=== PATIENT | female | born 1990 | race Two or more races ===

== ENCOUNTER 2024-11-16 11:14 | Inpatient (IN) | payer OTHER ==
[2024-11-16] MEDS ORDERED: NA CHLORIDE 0.9% 1,000 ML ONE ×3 (12:01→15:45)
[2024-11-16] MEDS ORDERED: ONDANSETRON 4 MG/2 ML VIAL ONE (12:10)
[2024-11-16] MEDS ORDERED: MORPHINE 4 MG/ML SYR ONE (12:10)
[2024-11-16 12:25] LABS: Specific Gravity > 1.030 (1.005-1.030); Sqamous Epithelial <5 /HPF (None Seen); Transitional Epithelial <5 /HPF (None Seen); Urine Bacteria <20 /HPF (<20); Urine Bilirubin NEGATIVE (Negative); Urine Blood 3+ (OVER) (Negative); Urine Clarity Extremely Turbid (Clear); Urine Color Yellow (Yellow); Urine Culture Reflex Order NOT NEEDED; Urine Glucose NEGATIVE (Negative); Urine Ketones NEGATIVE (Negative); Urine Microscopic Reflex YN ORDER UMIC; Urine Mucus 4+ /HPF (None Seen); Urine Nitrite NEGATIVE (Negative); Urine Protein 2+ (Negative); Urine RBC >50 /HPF (None Seen); Urine Urobilinogen 1+ (Normal); Urine WBC <5 /HPF (<5); Urine pH 6.5 (5.0-7.0)
[2024-11-16 12:32] LABS: Specific Gravity > 1.030 (1.005-1.030)
[2024-11-16 12:38] LABS: Absolute Basophils 0.1 K/uL (0-0.5); Absolute Lymphocytes (CBC) 1.6 K/uL (0.7-4.9); Absolute Monocytes 1.3 K/uL (0.1-1.3); Absolute Neutrophil 19.8 K/uL (1.8-8.0); Basophils % 0.3 % (0-1.3); Hematocrit 40.6 % (36.0-45.0); Hemoglobin 13.2 g/dL (12.0-15.0); Lymphocytes % 7.1 % (15.3-44.8); MCH 27.7 pg (27.0-35.0); MCHC 32.6 g/dL (32.0-36.0); Monocytes % 5.6 % (3.3-12.3); Platelets 230 thou/uL (152-406); RBC Red Blood Cell Count 4.78 M/uL (3.86-4.86); Red Cell Distribution Width 13.3 % (12.1-15.2)
[2024-11-16 12:56] LABS: Albumin 3.7 g/dL (3.4-5.0); Albumin/Globulin Ratio 0.8 (1.1-1.8); Anion Gap 7.4 mEq/L (5.0-15.0); Bilirubin Total 0.8 mg/dL (0.2-1.0); Globulin 4.4 g/dL (2.3-3.5); Potassium 3.4 mEq/L (3.5-5.1); Protein, Total 8.1 g/dL (6.4-8.2)
[2024-11-16 13:08] LABS: Blood Morphology Comment NOT SEEN (NOT SEEN); Platelet Estimate ADEQ; White Blood Cell Scan OK (OK)
[2024-11-16 13:17] LABS: SARS-CoV-2 Antigen CONTROL BLUE LINE VIS/BG OK; SARS-CoV-2 Antigen Rapid Res Negative (Negative)
--- NOTE | 2024-11-16 13:40 | RAD REPORT ---
EXAMINATION: CT ABDOMEN AND PELVIS WITHOUT CONTRAST CLINICAL INDICATION: Abdominal pain TECHNIQUE: CT abdomen and pelvis was performed, as per department protocol. IV contrast and oral was not administered.Axial, sagittal and coronal reconstructions were obtained. One or more of the following dose reduction techniques were used: Automated exposure control, adjustment of the mA and/o r kV according to the patient size, and/or iterative reconstruction. Unless otherwise specified, incidental findings do not require dedicated imaging follow-up. [id number]. COMPARISON: No prior exam. FINDINGS: The lack of intravenous and oral contrast limits evaluation of solid organs, vessels and bowel. 5.7 cm consolidation left lower lobe. The liver is mildly enlarged. Cholelithiasis. Mild gallbladder distention. Gallbladder wall does not appear thickened. Spleen, pancreas, right adrenal appear grossly normal 2.1 cm left adrenal mass. Hounsfield unit of -3. Compatible with a lipid rich benign adenoma. No foll ow-up recommended. Small nonobstructing left renal calculi.. No hydronephrosis No evidence of diverticulitis Normal appendix. 2.1 cm right ovarian cyst. No follow-up recommended. No significant free fluid. IMPRESSION: Left lower lobe consolidation could represent pneumonia or mass. Cholelithiasis with mild gallbladder distention Mild hepatomegaly Nonobstructing left renal calculi
--- NOTE | 2024-11-16 13:40 | RAD REPORT ---
EXAM: Chest Abdomen Pelvis W Cont CLINICAL INDICATION: Chest and abdominal pain TECHNIQUE: CT chest, abdomen and pelvis was performed, with 100 cc Isovue-300 IV contrast, as per de partment protocol. Axial, sagittal and coronal reconstructions were obtained. One or more of the following dose reduction techniques were used: Automated exposure control, adjustment of the mA and/o r kV according to the patient size, and/or iterative reconstruction. Unless otherwise specified, incidental findings do not require dedicated imaging follow-up. [id number]. Oral contrast not given. This limits evaluation of the bowel. COMPARISON: None FINDINGS: 6 cm left lower lobe opacity. No mediastinal or hilar lymphadenopathy. No pleural effusion.. No pericardial effusion Mild hepatomegaly. Cholelithiasis. Gallbladder mildly distended. Gallbladder wall does not appear thi ckened. The spleen, pancreas, right adrenal and right kidney unremarkable 1.6 cm adenoma left adrenal gland. Small nonobstructing left renal calculi. Normal appendix. 2.1 cm right ovarian cyst. No follow-up imaging recommended. No significant free fluid. There is no evidence of diverticulitis Mild prominence of the cervical canal. IMPRESSION: 6 cm left lower lobe opacity may represent a mass or pneumonia. Cholelithiasis. Mild gallbladder distention Small nonobstructing left renal calculi Mild prominence of the cervical canal is nonspecific. Follow-up ultrasound in couple months recommend ed for reevaluation
--- NOTE | 2024-11-16 13:56 | ER ---
Nurse's Notes [facility] Name: Esme Berger Age: 33 yrs Sex: Female : 1990 Arrival Date: 11/16/2024 Time: 11:14 Bed 20 Private MD: Diagnosis: Pneumonia sepsis Presentation: 11/16 11:35 Chief complaint: Patient states: LEFT FLANK WITH N/V STARTED LAST NIGHT. DENIES db DIARRHEA. Coronavirus screen: Client denies travel out of the [place] in the last 14 days. At this time, the client does not indicate any symptoms associated with coronavirus-19. Ebola Screen: Patient negative for fever greater than or equal to 101.5 degrees Fahrenheit, and additional compatible Ebola Virus Disease symptoms Patient denies exposure to infectious person. Patient denies travel to an Ebola-affected area in the 21 days before illness onset. No symptoms or risks identified at this time. Initial Sepsis Screen: Does the patient meet any 2 criteria? No. Patient's initial sepsis screen is negative. Does the patient have a suspected source of infection? No. Patient's initial sepsis screen is negative. Risk Assessment: Do you want to hurt yourself or someone else? Patient reports no desire to harm self or others. Onset of symptoms was November 15, 2024. 11:35 Method Of Arrival: Wheelchair db 11:35 Acuity: MONICA 3 db Triage Assessment: 11:35 General: Appears in no apparent distress. uncomfortable, Behavior is calm, cooperative. db Pain: Complains of pain in left upper quadrant and left lower quadrant. Neuro: Level of Consciousness is awake, alert, obeys commands, Oriented to person, place, time, situation, Speech is normal. Cardiovascular: No deficits noted. Respiratory: Airway is patent Respiratory effort is even, unlabored, Respiratory pattern is regular, symmetrical. GI: Abdomen is flat, non-distended, Reports upper abdominal pain, nausea, vomiting. : No deficits noted. No signs and/or symptoms were reported regarding the genitourinary system. Historical: - Allergies: 11:35 No Known Allergies; db - Home Meds: 11:35 None [Active]; db - PSHx: 11:35 section; db - Immunization history:: Adult Immunizations unknown. - Infectious Disease History:: Denies. - Social history:: Smoking status: Patient reports the use of cigarette tobacco products, smokes one pack cigarettes per day. Patient/guardian denies using alcohol. Screenin:53 [facility] ED Fall Risk Assessment (Adult) History of falling in the last 3 months, bp including since admission No falls in past 3 months (0 pts) Confusion or Disorientation No (0 pts) Intoxicated or Sedated No (0 pts) Impaired Gait No (0 pts) Mobility Assist Device Used No (0 pt) Altered Elimination No (0 pt) Score/Fall Risk Level 0 - 2 = Low Risk Oriented to surroundings. Abuse screen: Denies threats or abuse. Denies injuries from another. Nutritional screening: No deficits noted. Tuberculosis screening: No symptoms or risk factors identified. Assessment: 11:45 General: Appears uncomfortable, ill, Behavior is calm, cooperative, appropriate for age.bp 15:54 Reassessment: REPORT FAXED TO RM 213. bp Vital Signs: 11:35 BP 122 / 79; Pulse 119; Resp 18; Temp 100(O); Pulse Ox 95% on R/A; Weight 58.06 kg; db Height 5 ft. 4 in. ; 15:54 BP 108 / 72; Pulse 143; Resp 20; Temp 100.1; Pulse Ox 97% ; bp 11:35 Body Mass Index 21.97 (58.06 kg, 162.56 cm) db ED Course: 11:16 Patient arrived in ED. ra3 11:22 Christos Toussaint MD is Attending Physician. ec2 11:27 Attending Physician role handed off by Christos Toussaint MD sp3 11:27 Sharif Covarrubias MD is Attending Physician. sp3 11:35 Arm band placed on Patient placed in an exam room. db 11:41 Triage completed. db 11:41 Domenico Roy, RN is Primary Nurse. bp 12:22 Flu Sent. nh2 12:22 SARS RAPID Sent. nh2 13:08 CT Abd/Pelvis - Without Contrast In Process Unspecified. EDMS 13:16 Chest Abdomen Pelvis W Cont In Process Unspecified. EDMS 13:55 Stella Hayward is Hospitalizing Provider. sp3 15:53 No provider procedures requiring assistance completed. Patient admitted, IV remains in bp place. 15:54 Patient has correct armband on for positive identification. Provided Education on: N/A. bp Administered Medications: 12:28 Drug: morphine IVP or IV 4 mg IVP once over 4 mins Route: IVP; Infused Over: 4 mins; bp Site: right antecubital; 15:53 Follow up: Response: No adverse reaction bp 12:28 Drug: Ondansetron IVP 4 mg IVP once; over 2 minutes Route: IVP; Site: right antecubital;bp 15:53 Follow up: Response: No adverse reaction bp 12:29 Drug: NS 0.9% IV 1000 ml IV at 1 bolus Per protocol; to be given as a bolus over 60 bp minutes Route: IV; Rate: 1 bolus; Site: right antecubital; 15:51 Follow up: IV Status: Completed infusion bp 14:00 Drug: Rocephin - Rocephin (cefTRIAXone) IVPB 1 grams IVPB once over 30 mins; (mix in 50 bp mL NS) Route: IVPB; Infused Over: 30 mins; Site: right antecubital; 15:52 Follow up: IV Status: Completed infusion bp 14:00 Drug: Zithromax IVPB 500 mg IVPB once over 1 hrs; mix in 250 mL NS Route: IVPB; Infused bp Over: 1 hrs; Site: right antecubital; 15:52 Follow up: IV Status: Completed infusion bp 14:00 Drug: NS 0.9% IV 1000 ml IV at 1000 ml once; to be given as a bolus over 60 minutes bp Route: IV; Rate: 1000 ml; Site: right antecubital; 15:52 Follow up: IV Status: Completed infusion bp 15:30 Drug: Ibuprofen PO 600 mg PO once Route: PO; bp 15:52 Follow up: Response: No adverse reaction bp 15:30 Drug: Acetaminophen PO 1000 mg PO once Route: PO; bp 15:52 Follow up: Response: No adverse reaction bp 15:30 Drug: NS 0.9% IV 1000 ml IV at 150 ml/hr once Route: IV; Rate: 150 ml/hr; Site: right bp antecubital; 15:52 Follow up: IV Status: Infusion continued upon admission bp Medication: 15:54 VIS not applicable for this client. bp Outcome: 13:55 Decision to Hospitalize by Provider. sp3 15:54 Admitted to Med/surg room 213, bp 15:54 Condition: stable 15:54 Instructed on the need for admit, 16:42 Patient left the ED. [email or web address] Signatures: Dispatcher [employer] Domenico Tay RN RN bp Sharif Covarrubias MD MD sp3 Gale Badillo RN RN ko1 Tamiko Parra RN RN db Corral, Edwin, MD MD ec2 Suzie Awan 3 Matias Saleh, Jace nh2
--- NOTE | 2024-11-16 13:56 | EDPHYS ---
Physician Documentation [facility] Name: Esme Berger Age: 33 yrs Sex: Female : 1990 Arrival Date: 11/16/2024 Time: 11:14 Bed 20 Private MD: ED Physician Sharif Covarrubias HPI: 11/16 12:22 This 33 yrs old [place] Female presents to ER via Wheelchair with complaints of Flank sp3 Pain - Left. 12:22 33-year-old female with history of kidney stone in the past now presents with left sp3 flank pain for 48 hours now getting worse. She denies any dysuria or gross visualized hematuria. She denies any headache, chest pain, shortness of breath, intra-abdominal pain, vomiting, diarrhea or any other concerning signs or symptoms. She denies objectively having a fever but does feel warm.. Historical: - Allergies: 11:35 No Known Allergies; db - Home Meds: 11:35 None [Active]; db - PSHx: 11:35 section; db - Immunization history:: Adult Immunizations unknown. - Infectious Disease History:: Denies. - Social history:: Smoking status: Patient reports the use of cigarette tobacco products, smokes one pack cigarettes per day. Patient/guardian denies using alcohol. ROS: 12:27 Constitutional: Negative for fever, chills, and weight loss, Eyes: Negative for injury, sp3 pain, redness, and discharge, ENT: Negative for injury, pain, and discharge, Neck: Negative for injury, pain, and swelling, Cardiovascular: Negative for chest pain, palpitations, and edema, Respiratory: Negative for shortness of breath, cough, wheezing, and pleuritic chest pain, Back: Negative for injury and pain, MS/Extremity: Negative for injury and deformity, Skin: Negative for injury, rash, and discoloration, Neuro: Negative for headache, weakness, numbness, tingling, and seizure, Psych: Negative for depression, anxiety, suicide ideation, homicidal ideation, and hallucinations, Allergy/Immunology: Negative for hives, rash, and allergies, Endocrine: Negative for neck swelling, polydipsia, polyuria, polyphagia, and marked weight changes, 12:27 All other systems are negative, Exam: 12:27 Constitutional: This is a well developed, well nourished patient who is awake, alert, sp3 and in no acute distress. Head/Face: Normocephalic, atraumatic. Eyes: Pupils equal round and reactive to light, extra-ocular motions intact. Lids and lashes normal. Conjunctiva and sclera are non-icteric and not injected. Cornea within normal limits. Periorbital areas with no swelling, redness, or edema. Neck: Trachea midline, no thyromegaly or masses palpated, and no cervical lymphadenopathy. Supple, full range of motion without nuchal rigidity, or vertebral point tenderness. No Meningismus. Chest/axilla: Normal chest wall appearance and motion. Nontender with no deformity. No lesions are appreciated. Cardiovascular: Regular rate and rhythm with a normal S1 and S2. No gallops, murmurs, or rubs. Normal PMI, no JVD. No pulse deficits. Respiratory: Lungs have equal breath sounds bilaterally, clear to auscultation and percussion. No rales, rhonchi or wheezes noted. No increased work of breathing, no retractions or nasal flaring. Skin: Warm, dry with normal turgor. Normal color with no rashes, no lesions, and no evidence of cellulitis. MS/ Extremity: Pulses equal, no cyanosis. Neurovascular intact. Full, normal range of motion. Neuro: Awake and alert, GCS 15, oriented to person, place, time, and situation. Cranial nerves II-XII grossly intact. Motor strength 5/5 in all extremities. Sensory grossly intact. Cerebellar exam normal. Normal gait. Psych: Awake, alert, with orientation to person, place and time. Behavior, mood, and affect are within normal limits. 12:27 Back: Left CVA tenderness noted. Mild anterior abdominal pain to palpation left side., Vital Signs: 11:35 BP 122 / 79; Pulse 119; Resp 18; Temp 100(O); Pulse Ox 95% on R/A; Weight 58.06 kg; db Height 5 ft. 4 in. ; 15:54 BP 108 / 72; Pulse 143; Resp 20; Temp 100.1; Pulse Ox 97% ; bp 11:35 Body Mass Index 21.97 (58.06 kg, 162.56 cm) db MDM: 11:33 Medical Screening Exam initiated sp3 12:28 Data reviewed: vital signs, nurses notes, lab test result(s), EKG, radiologic studies. sp3 ED course: 33-year-old female with left flank pain. Patient is tachycardic and febrile to 100.0. Differential diagnosis includes UTI/pyelonephritis spectrum, ureterolithiasis/kidney stone spectrum, other intra-abdominal pathology, viral illness, among others. Workup will include UA, routine labs, CT scan of the abdomen pelvis noncontrast kidney stone protocol with final disposition pending workup and patient course. Normal saline for tachycardia and ondansetron and morphine for pain and nausea control also given. Disposition pending workup and patient course.. 13:51 ED course: Patient with sick centimeter pneumonia left lower lobe found on CT. No sp3 ureteral stones noted. 22,000 white count patient still tachycardic. Second liter normal saline ordered along with Rocephin and Zithromax IV. Lactate 1.7.. 11/16 11:55 Order name: CBC with Diff; Complete Time: 13:23 sp3 11/16 11:55 Order name: CMP; Complete Time: 13:23 sp3 11/16 11:55 Order name: Lipase; Complete Time: 13:23 sp3 11/16 11:55 Order name: Test, Urine; Complete Time: 13:23 sp3 11/16 11:55 Order name: Urinalysis w/ reflexes; Complete Time: 13:23 sp3 11/16 11:56 Order name: Lactate w/ 2H reflex if indic.; Complete Time: 13:23 sp3 11/16 11:56 Order name: Flu; Complete Time: 13:23 sp3 11/16 11:56 Order name: SARS RAPID; Complete Time: 13:23 sp3 11/16 11:56 Order name: Blood Culture Adult (2) sp3 11/16 12:41 Order name: CBC Smear Scan; Complete Time: 13:23 EDMS 11/16 15:10 Order name: RSV snw 11/16 15:19 Order name: Thyroid Stimulating Hormone EDMS 11/16 15:19 Order name: CBC with Automated Diff EDMS 11/16 15:19 Order name: CBC with Automated Diff EDMS 11/16 15:19 Order name: CBC with Automated Diff EDMS 11/16 15:19 Order name: CBC with Automated Diff EDMS 11/16 15:19 Order name: Comprehensive Metabolic Panel EDMS 11/16 15:19 Order name: Comprehensive Metabolic Panel EDMS 11/16 15:19 Order name: Comprehensive Metabolic Panel EDMS 11/16 15:19 Order name: Comprehensive Metabolic Panel EDMS 11/16 15:19 Order name: Lipid Profile EDMS 11/16 15:19 Order name: Lipid Profile EDMS 11/16 15:19 Order name: Magnesium EDMS 11/16 15:19 Order name: Magnesium EDMS 11/16 15:19 Order name: Magnesium EDMS 11/16 15:19 Order name: Magnesium EDMS 11/16 15:19 Order name: Phosphorus EDMS 11/16 15:19 Order name: Phosphorus EDMS 11/16 15:19 Order name: Phosphorus EDMS 11/16 15:19 Order name: Phosphorus EDMS 11/16 11:55 Order name: CT Abd/Pelvis - Without Contrast; Complete Time: 13:42 sp3 11/16 13:09 Order name: Chest Abdomen Pelvis W Cont; Complete Time: 13:42 EDMS 11/16 11:55 Order name: IV Saline Lock; Complete Time: 12:29 sp3 11/16 11:55 Order name: Labs collected and sent; Complete Time: 12:29 sp3 Administered Medications: 12:28 Drug: morphine IVP or IV 4 mg IVP once over 4 mins Route: IVP; Infused Over: 4 mins; bp Site: right antecubital; 15:53 Follow up: Response: No adverse reaction bp 12:28 Drug: Ondansetron IVP 4 mg IVP once; over 2 minutes Route: IVP; Site: right antecubital;bp 15:53 Follow up: Response: No adverse reaction bp 12:29 Drug: NS 0.9% IV 1000 ml IV at 1 bolus Per protocol; to be given as a bolus over 60 bp minutes Route: IV; Rate: 1 bolus; Site: right antecubital; 15:51 Follow up: IV Status: Completed infusion bp 14:00 Drug: Rocephin - Rocephin (cefTRIAXone) IVPB 1 grams IVPB once over 30 mins; (mix in 50 bp mL NS) Route: IVPB; Infused Over: 30 mins; Site: right antecubital; 15:52 Follow up: IV Status: Completed infusion bp 14:00 Drug: Zithromax IVPB 500 mg IVPB once over 1 hrs; mix in 250 mL NS Route: IVPB; Infused bp Over: 1 hrs; Site: right antecubital; 15:52 Follow up: IV Status: Completed infusion bp 14:00 Drug: NS 0.9% IV 1000 ml IV at 1000 ml once; to be given as a bolus over 60 minutes bp Route: IV; Rate: 1000 ml; Site: right antecubital; 15:52 Follow up: IV Status: Completed infusion bp 15:30 Drug: Ibuprofen PO 600 mg PO once Route: PO; bp 15:52 Follow up: Response: No adverse reaction bp 15:30 Drug: Acetaminophen PO 1000 mg PO once Route: PO; bp 15:52 Follow up: Response: No adverse reaction bp 15:30 Drug: NS 0.9% IV 1000 ml IV at 150 ml/hr once Route: IV; Rate: 150 ml/hr; Site: right bp antecubital; 15:52 Follow up: IV Status: Infusion continued upon admission bp Disposition Summary: 11/16/24 13:55 Hospitalization Ordered Notes: Hospitalization Status: Inpatient Admission sp3 Provider: Stella Hayward sp3 Location: Telemetry/[facility] (Inpatient) sp3 Condition: Stable sp3 Problem: new sp3 Symptoms: have worsened sp3 Bed/Room Type: Standard sp3 Room Assignment: 213(11/16/24 15:28) hb Diagnosis - Pneumonia sepsis sp3 Forms: - Medication Reconciliation Form sp3 - SBAR form sp3 - Leadership Thank You Letter sp3 Signatures: Dispatcher [employer] EDKY Caroline Samaniego FNP-C DIRECTOR OF MARKETING AND PROMOTIONS-[employer] Rody Moreno RN RN Domenico Roy RN RN bp Sharif Covarrubias MD MD sp3 Tamiko Parra RN RN db Corrections: (The following items were deleted from the chart) 11:56 11:56 BLOOD CULTURE*+[id number].LAB.BRZ ordered. EDKY EDMS 12:28 12:27 Constitutional: This is a well developed, well nourished patient who is awake, sp3 alert, and in no acute distress. Head/Face: Normocephalic, atraumatic. Eyes: Pupils equal round and reactive to light, extra-ocular motions intact. Lids and lashes normal. Conjunctiva and sclera are non-icteric and not injected. Cornea within normal limits. Periorbital areas with no swelling, redness, or edema. Neck: Trachea midline, no thyromegaly or masses palpated, and no cervical lymphadenopathy. Supple, full range of motion without nuchal rigidity, or vertebral point tenderness. No Meningismus. Chest/axilla: Normal chest wall appearance and motion. Nontender with no deformity. No lesions are appreciated. Cardiovascular: Regular rate and rhythm with a normal S1 and S2. No gallops, murmurs, or rubs. Normal PMI, no JVD. No pulse deficits. Respiratory: Lungs have equal breath sounds bilaterally, clear to auscultation and percussion. No rales, rhonchi or wheezes noted. No increased work of breathing, no retractions or nasal flaring. Abdomen/GI: Soft, non-tender, with normal bowel sounds. No distension or tympany. No guarding or rebound. No evidence of tenderness throughout. Skin: Warm, dry with normal turgor. Normal color with no rashes, no lesions, and no evidence of cellulitis. MS/ Extremity: Pulses equal, no cyanosis. Neurovascular intact. Full, normal range of motion. Neuro: Awake and alert, GCS 15, oriented to person, place, time, and situation. Cranial nerves II-XII grossly intact. Motor strength 5/5 in all extremities. Sensory grossly intact. Cerebellar exam normal. Normal gait. Psych: Awake, alert, with orientation to person, place and time. Behavior, mood, and affect are within normal limits. sp3 15:28 13:55 sp3 hb
[2024-11-16] MEDS ORDERED: AZITHROMYCIN 500 MG INJ IVPB ONE (14:27)
[2024-11-16] MEDS ORDERED: CEFTRIAXONE 1000 MG/VIAL ONE (14:27)
[2024-11-16] MEDS ORDERED: SODIUM CHLORIDE 0.9% 10ML INJ IV PRN (15:12)
--- NOTE | 2024-11-16 15:19 | P.HP ---
Certification for Inpatient Patient admitted to: Inpatient With expected LOS: >2 Midnights Patient will require the following post-hospital care: None Practitioner: I am a practitioner with admitting privileges, knowledge of patient current condition, hospital course, and medical plan of care. Services: Services provided to patient in accordance with Admission requirements found in Title 42 Section 412.3 of the Code of Federal Regulations <Caroline Samaniego - Last Filed: 11/16/24 20:16> Patient History Date of Service: 11/16/24 Reason for admission: Pneumonia, volume depletion History of Present Illness: Ms. Everette Berger is a 33-year-old female with a distant history of bronchial asthma. She began feeling poorly, running fever, and having significant cough with left flank pain 3 days ago. In the emergency department she was noted to have a 6 cm left lower lobe pneumonia without significant hypoxia. She received a 2 L bolus, blood cultures were drawn, and antibiotics initiated. We will admit her for left lower lobe pneumonia with flank pain, leukocytosis, and fever. Home medications list reviewed: Yes (Albuterol) - Past Medical/Surgical History Has patient received pneumonia vaccine in the past: No Diabetic: No -: Bronchial asthma -: x 2 Psychosocial/ Personal History: Lives at home with her 2 children - Social History Smoking Status: Current every day smoker Alcohol use: No CD- Drugs: No Caffeine use: Yes Place of Residence: Home <Caroline Samaniego - Last Filed: 11/16/24 20:16> Date of Service: 11/17/24 <HaywardJAMARI Dereje - Last Filed: 11/17/24 14:56> Allergies No Known Allergies Allergy (Unverified 11/16/24 17:28) Review of Systems 10-point ROS is otherwise unremarkable General: Fever, Chills, Weakness, Malaise Eyes: Unremarkable ENT: Unremarkable Respiratory: Cough, Shortness of Breath, SOB with Excertion, Pleuritic Pain, Sputum Cardiovascular: Unremarkable Gastrointestinal: Nausea, Vomiting Genitourinary: Dysuria Musculoskeletal: Other (Left flank pain) Integumentary: Unremarkable Neurological: Unremarkable Lymphatics: Unremarkable <Caroline Samaniego - Last Filed: 11/16/24 20:16> Physical Examination - Vital Signs Temperature: 103.8 F Pulse: 140 Respirations: 20 Pulse Ox (%): 98 - Physical Exam General: Alert, Mild distress, Other (Uncomfortable) HEENT: Atraumatic, Normocephalic Neck: Supple Respiratory: Diminished, Crackles/rales Cardiovascular: No edema, Regular rate/rhythm (Tachycardia) Capillary refill: <2 Seconds Gastrointestinal: Soft and benign Musculoskeletal: No clubbing, No swelling Integumentary: No rashes, Other Neurological: Normal speech, Normal tone, Normal affect Lymphatics: No axilla or inguinal lymphadenopathy External genitalia: Deferred Rectal: Deferred - Studies Laboratory Data (last 24 hrs) 11/16/24 11/16/24 12:25 12:25 WBC 22.80 H Hgb 13.2 Hct 40.6 Plt Count 230 Sodium 133 L Potassium 3.4 L BUN 12 Creatinine 1.00 Glucose 123 H Total Bilirubin 0.8 AST 114 H ALT 119 H Alkaline Phosphatase 85 Lipase 59 Microbiology Data (last 24 hrs): 11/16/24 12:25 Nasopharnyx Influenza Type A Antigen Screen - Final 11/16/24 12:25 Nasopharnyx Influenza Type B Antigen Screen - Final <Caroline Samaniego - Last Filed: 11/16/24 20:16> - Studies Microbiology Data (last 24 hrs): 11/16/24 12:25 Nasopharnyx Influenza Type A Antigen Screen - Final 11/16/24 12:25 Nasopharnyx Influenza Type B Antigen Screen - Final <HaywardJAMARI - Last Filed: 11/17/24 14:56> Assessment and Plan - Plan Assessment: Pneumonia Volume depletion with elevated liver enzymes Pleuritic chest pain Plan: 1. Continue IV antibiotics and pain control 2. Sputum and blood cultures 3. Repeat chest x-ray 4. Respiratory isolation needed needed until RSV results return 5. Neb treatments every 4 to 6 hours as needed 6. O2 per protocol 7. Continue with gentle hydration and fever management 8. Monitor and trend labs including CBC, CMP, LFTs, and lactate as needed 9. I-S 10. GI and DVT prophylaxis Discharge Plan: Home Plan to discharge in: 48 Hours - Advance Directives Does patient have a Living Will: No Does patient have a Durable POA for Healthcare: No - Code Status/Comfort Care Code Status Assessed: Yes (Full) <Caroline Samaniego - Last Filed: 12/19/24 20:16> - Plan This is 33 years old healthy female patient, smoker with a history of intermittent bronchial asthma Community-acquired pneumonia, bronchopneumonia in the left lower lobe with pleurisy complicated by sepsis, nonalcoholic fatty liver, negative COVID-19, influenza by rapid antigen test, No risk for Pseudomonas aeruginosa or MRSA, will continue empiric antibiotics with ceftriaxone and azithromycin, to get baseline procalcitonin, supportive care with antitussive IV fluid and antipyretic <JAMARI Hayward - Last Filed: 11/17/24 14:56>
[2024-11-16] MEDS ORDERED: IBUPROFEN 400 MG TAB ONE (15:45)
[2024-11-16] MEDS ORDERED: ACETAMINOPHEN 500 MG TAB ONE (15:45)
[2024-11-16 17:17] VITALS: BMI 21.9
[2024-11-16] MEDS: NA CHLORIDE 0.9% 1,000 ML IV SCH (17:25)
[2024-11-16] MEDS: ONDANSETRON 4 MG/2 ML VIAL IV PRN (17:32)
[2024-11-16] MEDS: ALBUTEROL 2.5 MG/3 ML NEB SOL NEB SCH (20:52)
[2024-11-16] MEDS: IPRATROPIUM BROM 0.5MG/2.5ML NEB SCH (20:52)
[2024-11-16] MEDS: BENZONATATE 100 MG CAP PO SCH (20:52)
[2024-11-16] MEDS: HYDROCODONE/APAP 5/325 MG TAB PO PRN (22:28)
[2024-11-17 04:50] LABS: Absolute Lymphocytes (CBC) 2.2 K/uL (0.7-4.9); Absolute Monocytes 0.7 K/uL (0.1-1.3); Absolute Neutrophil 13.4 K/uL (1.8-8.0); Basophils % 0.1 % (0-1.3); Eosinophils % 0.1 % (0-4.4); Hematocrit 31.2 % (36.0-45.0); Hemoglobin 10.3 g/dL (12.0-15.0); Lymphocytes % 13.4 % (15.3-44.8); MCHC 32.9 g/dL (32.0-36.0); MPV 7.7 fL (7.6-11.3); Monocytes % 4.4 % (3.3-12.3); Platelets 176 thou/uL (152-406); RBC Red Blood Cell Count 3.68 M/uL (3.86-4.86); Red Cell Distribution Width 13.6 % (12.1-15.2)
[2024-11-17 05:04] LABS: Albumin 2.5 g/dL (3.4-5.0); Albumin/Globulin Ratio 0.8 (1.1-1.8); Anion Gap 4.4 mEq/L (5.0-15.0); Bilirubin Total 0.4 mg/dL (0.2-1.0); Globulin 3.3 g/dL (2.3-3.5); Magnesium 2.1 mg/dL (1.6-2.4); Phosphorus 1.9 mg/dL (2.5-4.9); Potassium 3.4 mEq/L (3.5-5.1); Protein, Total 5.8 g/dL (6.4-8.2)
[2024-11-17 05:50] LABS: Hepatitis B Core IgM Nonreactive (Nonreactive); Hepatitis B surface AG Interp. Nonreactive (Nonreactive); Hepatitis C Virus Ab Nonreactive (Nonreactive)
[2024-11-17 05:51] LABS: HBsAG Nonreactive Report Report
[2024-11-17] MEDS: POTASSIUM CL SA 10 MEQ TAB PO ONE (08:49)
[2024-11-17] MEDS: POTASS/SODIUM PHOSPHATE 1 PKT POWD.PACK PO SCH (08:50)
[2024-11-17] MEDS: AZITHROMYCIN IV 500 MG in NA CHLORIDE 0.9% 250 ML IVPB SCH (08:52)
[2024-11-17] MEDS: CEFTRIAXONE 1,000 MG in NA CHLORIDE 0.9% 50 ML IVPB SCH (08:52)
[2024-11-17] MEDS: GUAIFENESIN/DM 5 ML UCUP PO PRN (08:59)
[2024-11-17] MEDS ORDERED: ENOXAPARIN 40 MG/0.4 ML SQ SCH (09:00)
[2024-11-17] MEDS ORDERED: PANTOPRAZOLE 40 MG INJ IVP SCH (09:00)
--- NOTE | 2024-11-17 09:22 | P.PN ---
Date of Service: 11/17/24 Subjective sleeping in no acute distress, no O2 dependence, fever down this am Review of Systems 10-point ROS is otherwise unremarkable General: Fever, Chills, Weakness, Malaise Eyes: Unremarkable ENT: Unremarkable Respiratory: Cough, Shortness of Breath, SOB with Excertion, Pleuritic Pain, Sputum Cardiovascular: Unremarkable Gastrointestinal: Nausea, Vomiting Genitourinary: Dysuria Musculoskeletal: Other (Left flank pain) Integumentary: Unremarkable Neurological: Unremarkable Lymphatics: Unremarkable Physical Examination - Vital Signs reviewed - Physical Exam General: sleeping, resp even and unlabored, no O2 requirement HEENT: Atraumatic, Normocephalic Neck: Supple Respiratory: Diminished, Crackles/rales left base Cardiovascular: No edema, Regular rate/rhythm Capillary refill: <2 Seconds Gastrointestinal: Soft and benign Musculoskeletal: No clubbing, No swelling Integumentary: No rashes, Other Neurological: Normal speech, Normal tone, Normal affect Lymphatics: No axilla or inguinal lymphadenopathy External genitalia: Deferred Rectal: Deferred - Plan Assessment: Pneumonia Volume depletion with elevated liver enzymes Pleuritic chest pain Plan: 1. Continue IV antibiotics and pain control 2. Sputum and blood cultures 3. Repeat chest x-ray prior to dc 4. Respiratory isolation even with RSV, Flu, SARS negative results 5. Neb treatments every 4 to 6 hours as needed 6. O2 per protocol 7. Continue with gentle hydration and fever management 8. Monitor and trend labs including CBC, CMP, LFTs, and lactate as needed, improved 11/17/24 post rehydration 9. I-S 10. GI and DVT prophylaxis Discharge Plan: Home Plan to discharge in: 48 Hours - Advance Directives Does patient have a Living Will: No Does patient have a Durable POA for Healthcare: No - Code Status/Comfort Care Code Status Assessed: Yes (Full)
[2024-11-17] MEDS: NA CHLORIDE 0.9% 1,000 ML IV SCH (13:40)
[2024-11-17] MEDS: KETOROLAC 30 MG/ML INJ IV PRN (15:16)
[2024-11-17] MEDS: SIMETHICONE 80 MG CHEWABLE TAB PO PRN (20:29)
[2024-11-18] MEDS ORDERED: SODIUM CHLORIDE 0.9% 10ML INJ IV PRN (05:46)
[2024-11-18 07:12] LABS: Absolute Eosinophils 0.1 K/uL (0-0.5); Absolute Lymphocytes (CBC) 2.2 K/uL (0.7-4.9); Absolute Monocytes 0.4 K/uL (0.1-1.3); Absolute Neutrophil 5.7 K/uL (1.8-8.0); Basophils % 0.4 % (0-1.3); Eosinophils % 1.3 % (0-4.4); Hematocrit 28.7 % (36.0-45.0); Hemoglobin 9.6 g/dL (12.0-15.0); Lymphocytes % 26.2 % (15.3-44.8); MCH 28.2 pg (27.0-35.0); MCHC 33.3 g/dL (32.0-36.0); MCV 84.7 fL (80-100); MPV 8.3 fL (7.6-11.3); Neutrophils % 67.1 % (41.7-73.7); Platelets 222 thou/uL (152-406); RBC Red Blood Cell Count 3.39 M/uL (3.86-4.86); Red Cell Distribution Width 13.7 % (12.1-15.2)
[2024-11-18 07:31] LABS: ALT/SGPT 88 U/L (13-56); AST/SGOT 44 U/L (15-37); Albumin 2.5 g/dL (3.4-5.0); Albumin/Globulin Ratio 0.7 (1.1-1.8); Alkaline Phosphatase 90 U/L (45-117); Anion Gap 6.6 mEq/L (5.0-15.0); BUN Blood Urea Nitrogen 9 mg/dL (7-18); Bicarbonate 23 mEq/L (21-32); Globulin 3.4 g/dL (2.3-3.5); Glomerular Filtration Rate 128 ml/min (=/>90); Glucose Level 92 mg/dL (74-106); Magnesium 2.1 mg/dL (1.6-2.4); Potassium 3.6 mEq/L (3.5-5.1); Protein, Total 5.9 g/dL (6.4-8.2); Sodium Level 140 mEq/L (136-145)
[2024-11-18 07:55] LABS: Bilirubin Total < 0.2 mg/dL (0.2-1.0)
[2024-11-18] MEDS: PANTOPRAZOLE 40 MG INJ IVP SCH (08:16)
--- NOTE | 2024-11-18 08:16 | P.PN ---
Date of Service: 11/18/24 Subjective no O2 dependence, no high fevers, pt looks much better. States she is feeling better but is having heaviness in chest and bloating Review of Systems 10-point ROS is otherwise unremarkable General: Fever, Chills, Weakness, Malaise Eyes: Unremarkable ENT: Unremarkable Respiratory: Cough, Shortness of Breath, SOB with Excertion, Pleuritic Pain, Sputum rust colored Cardiovascular: Unremarkable Gastrointestinal: Bloated Genitourinary: no Dysuria Musculoskeletal: Other (Left flank pain), improved post toradol Integumentary: Unremarkable Neurological: Unremarkable Lymphatics: Unremarkable Physical Examination - Vital Signs reviewed - Physical Exam General: resp even and unlabored, no O2 requirement HEENT: Atraumatic, Normocephalic Neck: Supple Respiratory: Diminished, Crackles/rales left base Cardiovascular: No edema, Regular rate/rhythm Capillary refill: <2 Seconds Gastrointestinal: Soft and benign Musculoskeletal: No clubbing, No swelling Integumentary: No rashes, Other Neurological: Normal speech, Normal tone, Normal affect Lymphatics: No axilla or inguinal lymphadenopathy External genitalia: Deferred Rectal: Deferred - Plan Assessment: Pneumonia Volume depletion with elevated liver enzymes Pleuritic chest pain Plan: 1. Continue IV antibiotics and pain control 2. Sputum and blood cultures 3. Repeat chest x-ray tomorrow 4. Respiratory isolation even with RSV, Flu, SARS negative results 5. Neb treatments every 4 to 6 hours as needed 6. O2 per protocol 7. Continue with gentle hydration and fever management 8. Monitor and trend labs including CBC, CMP, LFTs, and lactate as needed, improved 11/17/24 post rehydration 9. I-S 10. GI and DVT prophylaxis (increase protonix) Discharge Plan: Home Plan to discharge in: 24 Hours - Advance Directives Does patient have a Living Will: No Does patient have a Durable POA for Healthcare: No - Code Status/Comfort Care Code Status Assessed: Yes (Full)
[2024-11-18] MEDS ORDERED: PANTOPRAZOLE 40 MG INJ IVP SCH (09:00)
[2024-11-18 09:18] VITALS: O2SAT 97
[2024-11-18] MEDS: ACETAMINOPHEN 500 MG TAB PO PRN (13:57)
[2024-11-18] MEDS: HYDROCODONE/CHLORPHEN 5 ML/OSYR PO PRN (13:58)
[2024-11-19 06:21] LABS: Absolute Eosinophils 0.2 K/uL (0-0.5); Absolute Lymphocytes (CBC) 2.3 K/uL (0.7-4.9); Absolute Monocytes 0.4 K/uL (0.1-1.3); Absolute Neutrophil 4.9 K/uL (1.8-8.0); Basophils % 0.5 % (0-1.3); Eosinophils % 2.3 % (0-4.4); Hematocrit 27.7 % (36.0-45.0); Lymphocytes % 29.8 % (15.3-44.8); MCH 27.9 pg (27.0-35.0); MCHC 32.5 g/dL (32.0-36.0); MCV 85.8 fL (80-100); MPV 8.3 fL (7.6-11.3); Monocytes % 4.5 % (3.3-12.3); Neutrophils % 62.9 % (41.7-73.7); Platelets 250 thou/uL (152-406); RBC Red Blood Cell Count 3.23 M/uL (3.86-4.86); Red Cell Distribution Width 13.8 % (12.1-15.2)
[2024-11-19 06:39] LABS: Albumin 2.5 g/dL (3.4-5.0); Albumin/Globulin Ratio 0.7 (1.1-1.8); Anion Gap 7.8 mEq/L (5.0-15.0); Bilirubin Total 0.2 mg/dL (0.2-1.0); Globulin 3.4 g/dL (2.3-3.5); Magnesium 2.1 mg/dL (1.6-2.4); Phosphorus 3.2 mg/dL (2.5-4.9); Potassium 3.8 mEq/L (3.5-5.1); Protein, Total 5.9 g/dL (6.4-8.2)
--- NOTE | 2024-11-19 08:21 | RAD REPORT ---
EXAMINATION: TWO VIEW CHEST XR CLINICAL INDICATION: re-eval pneumonia TECHNIQUE: 2 views of the chest was performed. COMPARISON: 11/16/2024 CT study FINDINGS: Linear opacity in the right lung base is probably atelectasis. Moderate opacity in the posterior left lung base favored to represent pneumonia or mass. Little overall change is seen since comparative radiograph. The heart is upper limit of normal in size. Continued imaging follow-up until clearance i s recommended.
[2024-11-19] MEDS: Levofloxacin 750mg IV 750 MG/150 ML BAG IV SCH (08:34)
--- NOTE | 2024-11-19 09:16 | P.DS ---
Admission Date: 11/16/24 Discharge Date: 11/19/24 Reason for Admission: Pneumonia, volume depletion Brief History of Present Illness: Ms. Everette Berger is a 33-year-old female with a distant history of bronchial asthma. She began feeling poorly, running fever, and having significant cough with left flank pain 3 days ago. In the emergency department she was noted to have a 6 cm left lower lobe pneumonia without significant hypoxia. She received a 2 L bolus, blood cultures were drawn, and antibiotics initiated. We will admit her for left lower lobe pneumonia with flank pain, leukocytosis, and fever. Hospital Course: Ms. Everette Berger continues to feel better over the course of her hospitalization. She received neb treatments, antitussives, Rocephin and azithromycin IV for community-acquired pneumonia with bronchopneumonia of the left lower lobe with sepsis. She received Toradol for pleurisy with a noted decrease in pain. Repeat chest x-ray this morning shows left lower lobe pneumonia without worsening and right base linear atelectasis. Her respiratory status has stabilized. She does not require O2. Patient is still coughing but has no fever, chills, or tremors. Her labs and abdominal cat scan show non-alcoholic hepatosteatosis and dietary changes are recommended. She was counseled to quit smoking as well. She voices understanding of treatment plan, follow up, and need for re- evaluation of chest x-ray with PCP until clearance. <Caroline Samaniego - Last Filed: 11/19/24 09:17> Admission Date: 11/16/24 Discharge Date: 11/19/24 Hospital Course: Discharge diagnosis Community-acquired pneumonia, bronchopneumonia in the left lower lobe with sepsis Left pleurisy due to #1 Nonalcoholic steatohepatitis Nicotine use disorder History of intermittent bronchial asthma <JAMARI Hayward - Last Filed: 11/19/24 12:39> Disposition: ROUTINE DISCHARGE Discharge Condition: GOOD Vital Signs/Physical Exam: Temp Pulse Resp BP Pulse Ox 98.3 F 84 16 95/54 L 96 11/19/24 04:00 11/19/24 04:00 11/19/24 04:00 11/19/24 04:00 11/19/24 04:00 General: Alert, In no apparent distress, Oriented x3 HEENT: Atraumatic, Normocephalic Neck: Supple Respiratory: Normal air movement, Crackles/rales (left base) Cardiovascular: No edema, Normal pulses Capillary refill: <2 Seconds Gastrointestinal: Soft and benign Musculoskeletal: No clubbing Integumentary: No rashes Neurological: Normal speech, Normal tone, Normal affect Lymphatics: No axilla or inguinal lymphadenopathy External genitalia: Deferred Rectal: Deferred Laboratory Data at Discharge: WBC 7.80 thou/uL (4.3-10.9) 11/19/24 05:29 Hgb 9.0 g/dL (12.0-15.0) L 11/19/24 05:29 Hct 27.7 % (36.0-45.0) L 11/19/24 05:29 Plt Count 250 thou/uL (152-406) 11/19/24 05:29 Sodium 140 mEq/L (136-145) 11/19/24 05:29 Potassium 3.8 mEq/L (3.5-5.1) 11/19/24 05:29 BUN 6 mg/dL (7-18) L 11/19/24 05:29 Creatinine 0.50 mg/dL (0.55-1.02) L 11/19/24 05:29 Glucose 99 mg/dL (74-106) 11/19/24 05:29 Phosphorus 3.2 mg/dL (2.5-4.9) 11/19/24 05:29 Magnesium 2.1 mg/dL (1.6-2.4) 11/19/24 05:29 Total Bilirubin 0.2 mg/dL (0.2-1.0) 11/19/24 05:29 AST 18 U/L (15-37) 11/19/24 05:29 ALT 70 U/L (13-56) H 11/19/24 05:29 Alkaline Phosphatase 85 U/L (45-117) 11/19/24 05:29 Triglycerides 84 mg/dL (<150) 11/17/24 04:19 Cholesterol 68 mg/dL (<200) 11/17/24 04:19 HDL Cholesterol 14 mg/dL (40-60) L 11/17/24 04:19 Cholesterol/HDL Ratio 4.86 11/17/24 04:19 Lipase 59 U/L (13-75) 11/16/24 12:25 <Samaniego,Carloine Trent - Last Filed: 11/19/24 09:17> Vital Signs/Physical Exam: Temp Pulse Resp BP Pulse Ox 97.3 F 86 16 119/75 99 11/19/24 08:00 11/19/24 08:00 11/19/24 08:00 11/19/24 08:00 11/19/24 08:00 Laboratory Data at Discharge: WBC 7.80 thou/uL (4.3-10.9) 11/19/24 05:29 Hgb 9.0 g/dL (12.0-15.0) L 11/19/24 05:29 Hct 27.7 % (36.0-45.0) L 11/19/24 05:29 Plt Count 250 thou/uL (152-406) 11/19/24 05:29 Sodium 140 mEq/L (136-145) 11/19/24 05:29 Potassium 3.8 mEq/L (3.5-5.1) 11/19/24 05:29 BUN 6 mg/dL (7-18) L 11/19/24 05:29 Creatinine 0.50 mg/dL (0.55-1.02) L 11/19/24 05:29 Glucose 99 mg/dL (74-106) 11/19/24 05:29 Phosphorus 3.2 mg/dL (2.5-4.9) 11/19/24 05:29 Magnesium 2.1 mg/dL (1.6-2.4) 11/19/24 05:29 Total Bilirubin 0.2 mg/dL (0.2-1.0) 11/19/24 05:29 AST 18 U/L (15-37) 11/19/24 05:29 ALT 70 U/L (13-56) H 11/19/24 05:29 Alkaline Phosphatase 85 U/L (45-117) 11/19/24 05:29 Triglycerides 84 mg/dL (<150) 11/17/24 04:19 Cholesterol 68 mg/dL (<200) 11/17/24 04:19 HDL Cholesterol 14 mg/dL (40-60) L 11/17/24 04:19 Cholesterol/HDL Ratio 4.86 11/17/24 04:19 Lipase 59 U/L (13-75) 11/16/24 12:25 <JAMARI Hayward Ran - Last Filed: 11/19/24 12:39> Diet: low fat Activity: Ad lidia <Caroline Samaniego Trent - Last Filed: 11/19/24 09:17> <JAMARI Hayward - Last Filed: 11/19/24 12:39> Home Medications: Albuterol Inhaler [Ventolin Inhaler*] 2 puff IH Q6H PRN #1 unit 11/19/24 Albuterol Neb [Proventil 0.083% Neb Soln] 2.5 mg NEB [id number] #1 box 11/19/24 Benzonatate [Tessalon Perle*] 100 mg PO TID PRN #42 cap 11/19/24 Ibuprofen [Ibu] 600 mg PO TIDP PRN #21 tab 11/19/24 Ipratropium Neb [Atrovent*] 0.5 mg NEB [id number] #1 box 11/19/24 Nebulizer 1 each MC QID #1 ea 11/19/24 Nebulizer Accessories [Adult Aerosol Mask] 1 each MC Q6H #2 ea 11/19/24 Simethicone [Mylicon*] 240 mg PO Q6H PRN #1 box 11/19/24 levoFLOXacin [Levaquin] 750 mg PO DAILY #4 tab 11/19/24 New Medications: Nebulizer Accessories [Adult Aerosol Mask] 1 each MC Q6H #2 ea Ipratropium Neb [Atrovent*] 0.5 mg NEB [id number] #1 box Ibuprofen [Ibu] 600 mg PO TIDP PRN #21 tab PRN Reason: Pain Scale 5-7 (Moderate) levoFLOXacin [Levaquin] 750 mg PO DAILY #4 tab Simethicone [Mylicon*] 240 mg PO Q6H PRN #1 box PRN Reason: Gas Nebulizer 1 each MC QID #1 ea Albuterol Neb [Proventil 0.083% Neb Soln] 2.5 mg NEB [id number] #1 box Benzonatate [Tessalon Perle*] 100 mg PO TID PRN #42 cap PRN Reason: Cough Albuterol Inhaler [Ventolin Inhaler*] 2 puff IH Q6H PRN #1 unit PRN Reason: Shortness Of Breath Physician Discharge Instructions: PROBLEM: Pneumonia/Sepsis GOAL: Clear understanding of disease process INSTRUCTIONS: Follow up with Primary care Doctor in 1-2 weeks, call office for appointment Return to ER if symptoms worsen. Call 2nd floor nurses station [phone] for any questions regarding your stay or medications. Please sweet pickled fruit maker prescriptions at Pharmacy that you chose, and take as directed. Diet: low fat Activity: Ad lidia : Ms. Everette Berger continues to feel better over the course of her hospitalization. She received neb treatments, antitussives, Rocephin and azithromycin IV for community-acquired pneumonia with bronchopneumonia of the left lower lobe with sepsis. She received Toradol for pleurisy with a noted decrease in pain. Repeat chest x-ray this morning shows left lower lobe pneumonia without worsening and right base linear atelectasis. Her respiratory status has stabilized. She does not require O2. Patient is still coughing but has no fever, chills, or tremors. Incentive spirometry recommended to continue x 1 week. Her labs and abdominal cat scan show non-alcoholic hepatosteatosis and dietary changes are recommended. She was counseled to quit smoking as well. She voices understanding of treatment plan, follow up, and need for re-e valuation of chest x-ray with PCP until clearance. New medications: Levofloxacin 750 milligrams p.o. daily #4 (to complete 7-day antibiotic course) Albuterol 2.5 mg per 3 mL nebulized every 6 hours Ipratropium 0.5 mg per 2.5 mL of nebulized every 6 hours Ibuprofen 600 mg p.o. 3 times daily as needed pleuritic pain #21 Benzonatate 100 mg p.o. 3 times daily as needed cough Simethicone 240 mg p.o. every 6 hours as needed Followup: NONE,NONE [Primary Care Provider] -
[2024-11-19 16:54] VITALS: BP 119/77; TEMP 97.5
== END 2024-11-19 12:07 | disposition home or self-care (01) | DRG 871 ==
LOC: ER 11:14 → ERHOLD 15:12 → 2ND 16:07
PROVIDERS: ADMIT Internal Medicine; ATTEND Internal Medicine
DX: A41.9 Sepsis, unspecified organism (principal); J18.0 Bronchopneumonia, unspecified organism; E86.9 Volume depletion, unspecified; K75.81 Nonalcoholic steatohepatitis (NASH); F17.210 Nicotine dependence, cigarettes, uncomplicated; Z11.52 Encounter for screening for COVID-19
CPT/HCPCS: 36415; 71046; 71260; 74176; 74177; 80053; 80061; 80074; 81001; 81025; 83605; 83690; 83735; 84100; 84145; 84443; 85025; 87040; 87070; 87205; 87804; 87807; 87811; 94010; 94640; 94760; 96361; 96365; 96366; 96368; 96375; 99285; J0696; J2405; J2470; J7030; J7050; J7613; J7644; Q9967